=== PATIENT | male | born 1970 | race Two or more races ===

== ENCOUNTER 2018-12-22 05:51 | Inpatient (IN) | payer OTHER ==
[2018-12-22] VITALS (15 sets, daily range): BP systolic 97–128; BP diastolic 52–70
[~2018-12-22] VITALS: Ht 170.2 cm; Wt 87.1 kg
[~2018-12-22 05:51] MED LIST: ADVIL200 M2 ORAL
[2018-12-22] MEDS ORDERED: ceFAZolin sod 2 GM in D5W 110 ML IVPB ONE (07:00)
--- NOTE | 2018-12-22 07:23 | Pre-Procedure Note/Attestation ---
Pre-Procedure Note/Attestation Complete Prior to Procedure Planned Procedure: not applicable Procedure Narrative: Artificial disc replacement of C56, anterior cervical discectomy and fusion of C67 Indications for Procedure Pre-Operative Diagnosis: herniation of C56,67 Attestation I attest that I discussed the nature of the procedure; its benefits; risks and complications; and alternatives (and the risks and benefits of such alternatives ), prior to the procedure, with the patient (or the patient's legal inside technical sales representative). I attest that, if there was a reasonable possibility of needing a blood transfusion, the patient (or the patient's legal inside technical sales representative) was given the [facility] standardized written summary, pursuant to the Anshu Kirti Blood Safety Act ([place] Health and Safety Code # 1645, as amended). I attest that I re-evaluated the patient just prior to the surgery and that there has been no change in the patient's H&P, except as documented below: Elliott Tracy MD Dec 22, 2018 07:23
--- NOTE | 2018-12-22 07:25 | Brief Operative Note ---
Immediate Post Operative Note Operative Note Chief Complaint: neck pain and radiculopathy Pre-op Diagnosis: herniation of C56,67 Procedure: Artificial disc replacement of C56, anterior cervical discectomy and fusion of C67 Post-op Diagnosis: same as pre-op Findings: consistent w/pre-op dx studies Surgeon: Demarcus Repatcher: William Anesthesiologist: OLIVERIO Anesthesia: general Specimen: none Complications: none Condition: stable Fluids: IVF Estimated Blood Loss: minimal Drains: none Implant(s) used?: Yes - prodisc C sz5, interlock c sz 6 screws 3x13 Elliott Tracy MD Dec 22, 2018 07:25
[2018-12-22] MEDS ORDERED: Milk of Magnesia 30ml Ud ORAL PRN (07:30)
[2018-12-22] MEDS ORDERED: HYDROcodone/Acetamin 7.5/325 tab ORAL PRN ×2 (07:30)
[2018-12-22] MEDS ORDERED: Morphine Sulfate 2mg/ml Inj(IV/IM USE ONLY) IV PRN (07:30)
[2018-12-22] MEDS ORDERED: Morphine Sulfate 4mg/ml Inj (IV USE ONLY) IV PRN ×2 (07:30)
[2018-12-22] MEDS ORDERED: Naloxone 0.4mg/ml Inj IVP PRN (07:30)
[2018-12-22] MEDS ORDERED: HYDROmorphone 1mg/ml Carpuject IVP PRN (07:30)
[2018-12-22] MEDS ORDERED: Metoclopramide 10mg/2ml Inj IVP PRN ×2 (07:30→12:15)
[2018-12-22] MEDS ORDERED: HYDROcodone/Acetamin 5/325 tab ORAL PRN (07:30)
[2018-12-22] MEDS ORDERED: Midazolam 2mg/2ml Inj ONE (09:28)
[2018-12-22] MEDS ORDERED: fentaNYL 100 mcg/2 mL IV ONE (09:28)
[2018-12-22] MEDS ORDERED: Rocuronium Bromide 50mg/5ml Inj IV ONE (10:28)
[2018-12-22] MEDS ORDERED: Thrombin 5000 units TOPIC ONE (10:28)
[2018-12-22] MEDS ORDERED: Gelfoam Size TOPIC ONE (10:28)
[2018-12-22] MEDS ORDERED: Succinylcholine 20mg/ml 10ml vial ONE (10:28)
[2018-12-22] MEDS ORDERED: Bacitracin 50000 Units Vial ONE (10:29)
[2018-12-22] MEDS ORDERED: Neostigmine 1mg/ml 10ml Inj ONE (11:00)
[2018-12-22] MEDS ORDERED: LR 1000ml ONE (11:00)
[2018-12-22] MEDS ORDERED: Propofol 1,000mg/ 100ml btl IV ONE (11:00)
[2018-12-22] MEDS ORDERED: NS Irrig 1000ml ONE (11:00)
[2018-12-22] MEDS ORDERED: Sterile Water Irrig 1000ml IRRIG ONE (11:00)
[2018-12-22] MEDS ORDERED: Atropine Sulfate 0.4mg/ml inj ONE (11:40)
[2018-12-22] MEDS ORDERED: Morphine Sulfate 10mg/ml Inj ONE (11:55)
[2018-12-22] MEDS ORDERED: Glycopyrrolate 0.2mg/ml 1ml Vial ONE (11:57)
[2018-12-22] MEDS ORDERED: Sodium Chloride 10ml vial INJ ONE (11:57)
[2018-12-22] MEDS ORDERED: LR 1000ml 1,000 ML IVLG SCH (12:07)
--- NOTE | 2018-12-22 12:07 | Anethesia Preoperative Eval ---
Anesthesia Pre-op PMH/ROS General Date of Evaluation: Dec 22, 2018 Time of Evaluation: 10:40 Anesthesiologist: Nadine ASA Score: ASA 2 Mallampati Score Class I : Soft palate, uvula, fauces, pillars visible Class II: Soft palate, uvula, fauces visible Class III: Soft palate, base of uvula visible Class IV: Only hard plate visible Mallampati Classification: Class II Surgeon: Demarcus Diagnosis: Cervical radiculopathy Surgical Procedure: ACDF Anesthesia History: none Family History: no anesthesia problems Allergies: Coded Allergies: No Known Allergies (Unverified , 12/19/18) Patient NPO?: Yes NPO Date: Dec 21, 2018 NPO Time: 1999 Past Medical History Cardiovascular: Denies: HTN, CAD, [place], valve dz, arrhythmia, other Pulmonary: Denies: asthma, COPD, JUAN, other Gastrointestinal/Genitourinary: Reports: GERD - mild; Denies: CRI, ESRD, other Neurologic/Psychiatric: Reports: other - chronic pain; Denies: dementia, CVA, depression/anxiety, TIA Endocrine: Denies: DM, hypothyroidism, steroids, other HEENT: Denies: cataract (L), cataract (R), glaucoma, NUIQSUT (L), NUIQSUT (R), other Hematology/Immune: Denies: anemia, DVT, bleeding disorder, other Musculoskeletal/Integumentary: Denies: OA, RA, DJD, DDD, edema, other PMH Narrative: as above PSxH Narrative: cholecystectomy Anesthesia Pre-op Phys. Exam Physician Exam Last Vital Signs Date Time Temp Pulse Resp B/P (MAP) Pulse Ox O2 Delivery O2 Flow Rate FiO2 12/22/18 07:34 97.7 85 19 113/70 (84) 97 12/22/18 07:10 Room Air Constitutional: NAD Neurologic: CN 2-12 intact Cardiovascular: RRR, no M/R/G Respiratory: CTA Gastrointestinal: S/NT/ND Airway Exam Mallampati Score: Class II MO: full Neck: flexible ROM: limited Teeth: intact Dentures: no upper, no lower Anesthesia Pre-op A/P Labs see chart Studies Pre-op Studies: EKG - NSR Risk Assessment & Plan Assessment: ASA 2 Plan: GA with ETT neuromonitoring Status Change Before Surgery: No Pre-Antibiotics Drug: Ancef 2 gr Given Within 1 Hr of Incision: Yes Time Given: 11:36 Deshaun Mccoy MD Dec 22, 2018 12:07
[2018-12-22] MEDS ORDERED: Meperidine 50mg/ml Inj(FOR RIGORS ONLY) IV PRN (12:15)
[2018-12-22] MEDS ORDERED: Ketorolac 30mg Inj IV PRN (12:15)
[2018-12-22] MEDS ORDERED: DiphenhydrAMINE 50mg/ml Inj IVP PRN (12:15)
[2018-12-22] MEDS ORDERED: Acetaminophen (Non formulary) 100 ML IV ONE (12:15)
[2018-12-22] MEDS ORDERED: Ketorolac 30mg Inj ONE (13:08)
--- NOTE | 2018-12-22 13:45 | Immediate Post-Op Evaluation ---
Immediate Post-Op Evalulation Immediate Post-Op Evalulation Procedure: ACDF C5 to C7 Date of Evaluation: Dec 22, 2018 Time of Evaluation: 13:44 IV Fluids: 1200 Blood Products: none Estimated Blood Loss: 50 Urinary Output: 200 Blood Pressure Systolic: 128 Blood Pressure Diastolic: 67 Pulse Rate: 64 Respiratory Rate: 20 O2 Sat by Pulse Oximetry: 99 Temperature (Fahrenheit): 97.7 Pain Score (1-10): 1 Nausea: No Vomiting: No Complications none Patient Status: reacts, patent, extubated, none Hydration Status: adequate Deshaun Mccoy MD Dec 22, 2018 13:45
[2018-12-22] MEDS: Hydromorphone 0.5mg/0.5ml inj IVP PRN ×2 (13:59→14:15)
--- NOTE | 2018-12-22 15:20 | NUR ---
NURSE NOTES: Patient arrived on unit via hospital bed. Stable. Denies pain or SOB. Patient oriented to room, unit, and call light. Patient encouraged to use call light for assistance, verbalized understanding. Surgical site clean, dry, and intact. Ice pack in place as ordered. Patient is in bed in locked and lowest position with call light within reach. All safety measures provided. WIll continue to monitor.
[2018-12-22] MEDS ORDERED: Chloraseptic Spray 20mL Bottle ORAL PRN (16:31)
--- NOTE | 2018-12-22 17:40 | Diagnostic Imaging Report ---
Indication: Back pain Technique: Intraoperative fluoroscopic imaging. Total number of images submitted 4 Total fluoroscopy time 32.4 seconds Total fluoroscopy dose 11.67 mGy Operating surgeon: Demarcus Comparison: None Findings: Fluoroscopic imaging from spinal surgery submitted for archival the PACS. Initial image demonstrates an indwelling endotracheal tube final image demonstrates surgical material in the renal C5-C6 and C6-C7. Note that the radiologist was not present during image acquisition. IMPRESSION: Intraoperative fluoroscopic imaging. Please see operative report.
--- NOTE | 2018-12-22 18:00 | Operative Note - Dictated ---
DATE OF OPERATION: 12/22/2018 SURGEON: Elliott Tracy MD, Orthopedic Spine Surgeon. CLIENT SERVICE CONSULTANT: BRIAN Marcano. PREOPERATIVE DIAGNOSES: 1. Intractable neck pain. 2. Radiculopathy. 3. Herniation, C5-C6 and C6-C7. 4. Neural foraminal stenosis C5-C6 and C6-C7. 5. Stenosis. POSTOPERATIVE DIAGNOSES: 1. Intractable neck pain. 2. Radiculopathy. 3. Herniation, C5-C6 and C6-C7. 4. Neural foraminal stenosis C5-C6 and C6-C7. 5. Stenosis. PROCEDURE PERFORMED: 1. Anterior cervical discectomy and artificial disc replacement of C5-C6 using a Synthes Prodisc C size 5. 2. Anterior cervical discectomy and fusion of C6-C7 using Nuvasive Interlock C size 6 PEEK cage and three 13 mm screws 1 mL Osteocell allograft bone and local autograft. 3. Use of intraoperative microscope. 4. Motor evoked potential monitoring. 5. Somatosensory evoked potential monitoring. 6. Supervision and interpretation of fluoroscopy. COMPLICATIONS: None. ANESTHESIA: General. ANESTHESIOLOGIST: Deshaun Mccoy M.D. ESTIMATED BLOOD LOSS: Less than 100 mL. INDICATIONS FOR SURGERY: This patient is a 48-year-old male who has a history of diagnoses as listed above. As of result of this, the patient sustained intractable neck pain, radiculopathy, herniation, C5-C6 and C6-C7, neural foraminal stenosis C5-C6 and C6-C7, stenosis. We tried a course of conservative management but despite this course there was still a significant component of persistent, recalcitrant neck pain and arm pain. The MRI demonstrated significant neural foraminal compromise secondary to disc herniations at C5-C6 and C6-C7. We had a long discussion with Joni regarding the risks and benefits of surgery. Our discussion included but was not limited to nonoperative management, chiropractic management, another epidural steroid injection as well definitive management in the form of surgery. We recommended an artificial disc replacement of cervical C5-C6 and anterior cervical discectomy and fusion of cervical C6-C7 as final definitive management. We reviewed the risks and benefits of surgery with the patient. Our discussion included a comprehensive review of the clinical issues and the nature of the clinical decision. We reviewed the alternatives, including doing nothing. The patient elected to proceed accordingly with an artificial disc replacement of cervical C5-C6 and anterior cervical discectomy and fusion of cervical C6-C7. We had a long discussion regarding the risks, alternatives and benefits of surgery. Our description of the risks included a discussion in person as well as a signed consent which detailed all pertinent risks from the procedure itself. Briefly, our discussion included but was not limited to infection, bleeding, pseudarthrosis, spinal cord injury, neurovascular injury, dural tear, CSF leak, neuropathy, paralysis, permanent weakness/drop foot/drop arm, paresthesias, blindness, palsy and weakness. The patient understood there may be a need for a revision surgery or additional procedures. Approach-related complications including dysphonia, dysphagia, blindness, permanent vocal cord and neural injury, hematoma, swallowing and breathing difficulty. Medical complications were reviewed including liver, kidney, shock, cardiopulmonary failure, anesthesia complications including , swelling, damage to the musculature, larynx/voice injury or loss, esophagus/throat, trachea, blood vessels and muscles/muscular sprain and lungs/pneumothorax during this surgical procedure; injury to deeper structures may be temporary or permanent. After this review of risks, the patient understood these and elected to proceed. A written and verbal consent was given. We discussed the pros and cons of all the alternatives. We discussed the uncertainties associated with the decision. Afterwards I assessed the patient's understanding and explored their preferences. All questions were answered and no guarantees were given. Medical clearance was obtained prior to surgery. INTRAOPERATIVE FINDINGS: At C5-C6: There was collapse of the disc space, decreased disc height. There was a broad anterior osteocyte of bone. There was evidence of a discrete tear within the posterior longitudinal ligament on the left side. This tear was oriented 20 degrees cephalad to caudad. Through this tear, I noticed the posterior limb of the disc fragment. This was carefully probed and resected with a combination of curettes and Kerrison rongeurs. At C6-C7: There was a tear in the posterior longitudinal ligament on the left side approximately 20 degrees cephalad to caudad. Through this tear, I noted the posterior limb of herniated disc. This was probed with a Microsect curette and resected with a combination of Kerrison rongeurs and pituitary. There was a large fragment. After removal of the fragment, there was a fat pad noticed in and around the neural foramina itself. A complete and thorough decompression was performed without difficulty. DESCRIPTION OF PROCEDURE: Under the benefit of general endotracheal anesthesia and with the assistance of the entire operative team, the patient was moved from the gurney onto the operative table in the supine position. The head was secured and carefully positioned appropriately. Bilateral arms were secured with GelPads and foam and all bony prominences were padded. For the bilateral lower extremities SCD and ISABELLA hose were placed for DVT prophylaxis. A surgical timeout was called which corroborated our planned procedure of artificial disc replacement of an artificial disc replacement of cervical C5-C6 and anterior cervical discectomy and fusion of cervical C6-C7. Preoperative antibiotics were administered within 30 minutes of the incision for antibiotic prophylaxis. Using lateral fluoroscopic radiography, the operative levels were delineated. Next the wound was prepped and draped with Chlorhexidine and sterile drapes. An incision was based on lateral fluoroscopy and we centered our incision at the C5-C6 and C6-C7 Interspace and next using a standard Murray-Quan anterior based approach the incision was taken down through the skin and subcutaneous tissues until the vertebral bodies and their corresponding disc spaces were visualized. A needle was placed into the interspace to confirm placement of the operative interspace and we performed the remainder of procedure under microscopic visualization. Next, using a bipolar and Bovie cautery to ensure meticulous hemostasis, the longus colli was mobilized bilaterally and retractors were placed deep to the longus colli bilaterally to address retraction. Next we turned our attention to the radical anterior discectomy. This was initially performed at C5-C6. First by using a 15 blade scalpel followed by narrow pituitaries and a Microsect 5-B curette was used to denude the endplate of all cartilaginous tissue. Next using a [employer] Reji AM8 drillbit the vertebral endplates were denuded of all residual cartillage in a [id number] and layer by layer fashion, and ultimately the posterior uncinate joints bilaterally and posterior osteophytic lips and margins were carefully denuded until clear visualization of the posterior longitudinal ligament was possible. An endplate preparation was performed in the exact same fashion using an intervertebral order administrator, sequential distraction was obtained throughout the disc space. We saw a tear/rent in the PLL and this was carefully mobilized and dissected using a Microsect 1-B curet until we visualized a discrete disc herniation with compression of the spinal cord as well as neural foramina which was left more than right sided. This neural foraminal compression was carefully resected using a Kerrison-1 and Kerrison-2 rongeurs until complete decompression of the spinal cord was visualized and complete decompression of the neural foramina and nerve root therein as well as the axilla and lateral margin of the nerve root was visualized and subsequently completely decompressed. The family was notified at one hour intervals throughout the procedure to provide for consistent updates. We next turned our attention towards trialing our implant within the disc space. We initially tried size 5 and this Prodisc Cervical spacer fit well in regards to depth and width. This implant was opened and prepared. Next under direct visualization I confirmed excellent fit in respect to the anterior and posterior vertebral bodies, the uncinate joints and in regards to toggle. Once satisfied with this placement on serial AP and lateral fluoroscopy I turned my attention towards cutting our len. These were cut in the bones using a reciprocating drill and afterwards all free fragments of bone were irrigated. Next FloSeal was placed into the interspace, then removed in its entirety and the implant was inserted using fluoroscopic guidance. Next the Synthes Prodisc C size 5 ADR was then carefully advanced and secured into the intervertebral space under direct visualization and with supervision of AP and lateral fluoroscopic views. I next turned my attention towards the radical anterior discectomy. This was then performed at C6-C7. First by using a 15 blade scalpel followed by narrow pituitaries and a micro-sect 5-B curette was used to denude the endplate of all cartilaginous tissue. Next using a [employer] Reji AM8 drillbit the vertebral endplates were denuded of all cartilaginous tissue in a [id number] and layer by layer fashion, and ultimately the posterior uncinate joints bilaterally and posterior osteophytic lips and margins were carefully denuded until wide and thorough visualization of the posterior longitudinal ligament was possible. At this level the endplate preparation was performed in the exact same fashion using an intervertebral order administrator, sequential distraction was obtained throughout the disc space. We saw a tear/rent in the PLL and this was carefully mobilized and dissected using a micro-set 1-B curette until we visualized an obvious disc herniation with compression of the spinal cord as well as neural foramina which was left more than right sided. This neural foraminal compression was carefully resected using a Kerrison-1 and Kerrison-2 rongeurs until complete decompression of the spinal cord was visualized and complete decompression of the neural foramina and nerve root therein as well as the axilla and lateral margin of the nerve root was visualized and subsequently completely decompressed. We next turned our attention towards trialing our implant within the disc space. We initially tried size 5 and afterwards size 6 trial from the Nuvasive interlock system at each level, which appeared to be appropriate under AP and lateral fluoroscopy as well as in terms of its height, depth, width and lack of toggle. The PEEK polyetheretherketone interbody cages were then both packed with allograft bone from [employer] and local autograft bone matrix. Next these were then carefully advanced and secured into their intervertebral spaces under direct visualization and with supervision of AP and lateral fluoroscopic views. We next turned our attention towards plating. Plating was performed at each level with the Nuvasive interlock-C plating system. A total of three screws, size 13 mm in length were inserted and confirmed under AP and lateral fluoroscopy and confirmed to be in excellent position. After a finger sweep we confirmed removal of all sponges. The retractor was removed and we next turned our attention to meticulous hemostasis with FloSeal and bipolar cautery. After the sponge and needle count was again found to be correct with our second count, we next turned our attention to closure. The wound was again copiously irrigated with antibiotic impregnated saline Closure consisted of 4-0 clear nylon for the platysma, and 5-0 clear nylon for the superficial skin. Final skin closure and dressings consisted of Dermabond. Prior to final closure, a final radiograph was obtained which demonstrated the hardware is intact with excellent position throughout. The patient tolerated the procedure well. The patient was carefully extubated after the conclusion of surgery. We discussed the findings of the surgery with the family upon completion of the case. At this point the patient was transferred to the spine floor for further observation. Elliott Tracy M.D. DR: MILADIS JOB#: [id number] CC:
[2018-12-22] MEDS: Docusate 100mg cap ORAL SCH (18:07)
[2018-12-22] MEDS: Dexamethasone 4mg/ml vial IVP SCH (18:07)
[2018-12-22] MEDS: NS w/KCl 20mEq 1000ml 1,000 ML IV SCH (18:07)
[2018-12-22] MEDS: ceFAZolin sod 1 GM in D5W 55 ML IV SCH (18:43)
--- NOTE | 2018-12-22 19:30 | NUR ---
HAND-OFF: Report given to Kim MAR. Patient is stable.
--- NOTE | 2018-12-22 22:41 | NUR ---
NURSES NOTE: Received pt lying in bed, A/O X4, family at bed side. Patient shows no outward s/s of distress. Breathing pattern is unlabored, and even. VS WNL; however, heart rate reads low at 43-50. Patient denies dizziness, light headedness, and shows no alterations in mental status. Patient drank apprx 2000ml of water and HR increased. Patient voided using urinal, 200 cc recorded at 2045. Radial pulse is regular and at 60. VS machine records HR at 56-58. Patient requested to walk with , ambulatory without assist, steady gait. Surgical site is clean and intact. Ice packs given for anterior and posterior neck for comfort. Patient states pain is 3/10 and declines tylenol. Patient will continue to be closely monitored.
[2018-12-23] VITALS: BP 117/68
[2018-12-23] MEDS: Dexamethasone 4mg/ml vial IVP SCH ×3 (00:14→11:18)
[2018-12-23] MEDS: ceFAZolin sod 1 GM in D5W 55 ML IV SCH ×2 (03:29→11:01)
[2018-12-23 04:00] VITALS: BP 128/66
[2018-12-23] MEDS: NS w/KCl 20mEq 1000ml 1,000 ML IV SCH ×2 (06:31→13:00)
[2018-12-23 08:00] VITALS: BP 109/69
--- NOTE | 2018-12-23 08:00 | NUR ---
NURSE NOTES: Received report from Abby MAR, pt a/a/o x 4 laying inbed with no signs of distress or other issues at this time. surgical dressing c/d/i open to air. IV on the left FA gauge #10 running NS+20mEq@100ml/hr. soft cervical diet, pt is able to tolerated well with no signs of n/v. per report pts HR went to lower 40's. Dr. Pereyra was consulted, awaiting for response. plan to d/c home today. call light within in reach, bed in lowest position. side rales up x2. I will f/u as needed.
--- NOTE | 2018-12-23 08:14 | NUR ---
Nurses Note: Report given to Troy Dupont. Endorsed EKG order and consult for pt low HR. Pt is stable and asymptomatic of low HR as of current and during NOC shift. Left in stable condition.
[2018-12-23 09:16] VITALS: BP 126/68
--- NOTE | 2018-12-23 09:16 | 48 Hour Post Anesthesia Eval ---
Post Anesthesia Evaluation Procedure: ACDF C5 to C7 Date of Evaluation: Dec 23, 2018 Time of Evaluation: 09:15 Blood Pressure Systolic: 126 0: 68 Pulse Rate: 64 Respiratory Rate: 18 Temperature (Fahrenheit): 97.6 O2 Sat by Pulse Oximetry: 98 Airway: patent Nausea: No Vomiting: No Pain Intensity: 3 Hydration Status: adequate Cardiopulmonary Status: stable Mental Status/LOC: patient returned to baseline Follow-up Care/Observations: n/a Post-Anesthesia Complications: none Follow-up care needed: ready to discharge Deshaun Mccoy MD Dec 23, 2018 09:16
[2018-12-23] MEDS: Docusate 100mg cap ORAL SCH (09:39)
--- NOTE | 2018-12-23 10:31 | NUR ---
PT Note PT trini completed. Patient was instructed on proper neck care and HEP's. He was able to demonstrate understanding of all instructions. No f/u PT treatments needed. Addendum: 12/23/18 at 1032 by DEBORAH BELLO PT Amended: Links added.
[2018-12-23] MEDS ORDERED: NORCO 10-325 T1 EACH ORAL (10:52)
--- NOTE | 2018-12-23 11:01 | General Progress Note ---
Assessment/Plan Assessment/Plan: neck pain and radiculopathy herniation of C56,67 Artificial disc replacement of C56, anterior cervical discectomy and fusion of C67 PLAN 1. incentive spirometry 2. SCD 3. PT evaluation and therapy 4. Hydration 5. Pain management 6. discharge planning Subjective Allergies: Coded Allergies: No Known Allergies (Unverified , 12/19/18) Subjective bradycardic noted preop asymptomatic Objective Last 24 Hour Vital Signs Date Time Temp Pulse Resp B/P (MAP) Pulse Ox O2 Delivery O2 Flow Rate FiO2 12/23/18 09:16 64 18 98 12/23/18 09:00 Room Air 12/23/18 08:00 99.0 59 18 109/69 (82) 96 12/23/18 04:00 97.6 52 17 128/66 (86) 96 12/23/18 00:00 98.7 53 16 117/68 (84) 98 12/22/18 21:00 Room Air 12/22/18 20:00 98.6 48 18 111/57 (75) 98 12/22/18 17:45 97.5 53 19 120/60 (80) 99 12/22/18 16:45 98.1 80 18 100/62 (75) 100 12/22/18 15:45 98.1 67 19 104/60 (75) 98 12/22/18 15:15 98.1 69 19 97/54 (68) 98 12/22/18 15:00 98.1 74 19 99/52 (68) 93 12/22/18 14:50 97.9 56 12 123/69 99 Nasal Cannula 3 12/22/18 14:45 97.9 12/22/18 14:45 97.9 12/22/18 14:45 97.9 12/22/18 14:40 52 12 125/68 99 Nasal Cannula 3 12/22/18 14:25 50 12 112/59 100 Nasal Cannula 3 12/22/18 14:10 52 12 118/68 100 Nasal Cannula 3 12/22/18 14:00 50 13 115/65 100 Simple Mask 6 12/22/18 13:50 53 12 112/63 100 Simple Mask 6 12/22/18 13:45 53 14 118/69 100 Simple Mask 6 12/22/18 13:45 64 20 99 12/22/18 13:40 97.4 62 13 128/67 100 Simple Mask 6 Intake and Output 12/22/18 12/23/18 19:00 07:00 Intake Total 1350 ml 955 ml Output Total 250 ml Balance 1100 ml 955 ml Intake IV Total 1350 ml 955 ml Output Urine Total 200 ml Estimated Blood Loss 50 ml # Voids 1 Height (Feet): 5 Height (Inches): 7.00 Weight (Pounds): 192 Objective WDWN NAD clear breath sounds bilaterally without rhonchi or wheeze [id number] without MRG NABS nontender no HSM no CCE nonfocal Milton Mayers MD Dec 23, 2018 11:01
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
--- NOTE | 2018-12-23 13:30 | NUR ---
NURSE NOTES: Received d/c order. discharge instructions and belongings given to patient and pt's . IV removed prior to d/c. also RX for [place] #90 weer given to patient, he stated that he will go to his regular pharmacy to fill out prescription. pt left the floor with no signs of distress or other issues at this time. pt's will provide transportation. I will f/u as needed. - Dr. Castro assessed patient and cleared patient to d/c home.
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
== END 2018-12-23 12:10 | disposition home or self-care (01) | DRG 473 ==
LOC: SDSOVERFLO 05:51 → 3E 14:40
PROC: 0RB30ZZ Excision of Cervical Vertebral Disc, Open Approach (ICD-10-PCS; principal; 2018-12-22 10:30)
PROC: 0RG10A0 Fusion of Cervical Vertebral Joint with Interbody Fusion Device, Anterior Approach, Anterior Column, Open Approach (ICD-10-PCS; principal; 2018-12-22 10:30)
PROC: 0RR30JZ Replacement of Cervical Vertebral Disc with Synthetic Substitute, Open Approach (ICD-10-PCS; principal; 2018-12-22 10:30)
DX: M50.122 Cervical disc disorder at C5-C6 level with radiculopathy (principal); M48.02 Spinal stenosis, cervical region; V89.2XXS Person injured in unspecified motor-vehicle accident, traffic, sequela; R00.1 Bradycardia, unspecified
CPT/HCPCS: 36415; 72040; 76000; 84439; 84443; 86850; 86900; 86901; 87081; 94003; 94150; J2250; J2405; J2710

== ENCOUNTER 2019-06-08 11:00 | Inpatient (IN) | payer OTHER ==
[~2019-06-08] VITALS: Ht 170.2 cm; Wt 86.2 kg
[~2019-06-08 11:00] MED LIST changes: +NORCO 10-325 T1 EACH ORAL
[2019-08-03] VITALS (15 sets, daily range): BP systolic 113–123; BP diastolic 67–78
[2019-08-03] MEDS ORDERED: ceFAZolin sod 2 GM in NS 55 ML IVPB ONE (07:00)
[2019-08-03] MEDS ORDERED: LR 1000ml 1,000 ML IVLG SCH (10:39)
--- NOTE | 2019-08-03 10:43 | Anethesia Preoperative Eval ---
Anesthesia Pre-op PMH/ROS General Date of Evaluation: August 03, 2019 Time of Evaluation: 11:54 Anesthesiologist: Carmelina ASA Score: ASA 2 Mallampati Score Class I : Soft palate, uvula, fauces, pillars visible Class II: Soft palate, uvula, fauces visible Class III: Soft palate, base of uvula visible Class IV: Only hard plate visible Mallampati Classification: Class II Surgeon: Demarcus Diagnosis: Back Pain Surgical Procedure: L5-S1 Microdiscectomy, Foraminotomy, Hemilaminotomy Anesthesia History: none Family History: no anesthesia problems Allergies: Coded Allergies: No Known Allergies (Unverified , 12/19/18) Medications: see eMAR Patient NPO?: Yes Past Medical History Other: obesity - BMI 31 PSxH Narrative: Cholecystectomy Anesthesia Pre-op Phys. Exam Physician Exam Last Vital Signs Date Time Temp Pulse Resp B/P (MAP) Pulse Ox O2 Delivery O2 Flow Rate FiO2 08/03/19 10:01 Room Air 08/03/19 09:50 97.2 45 20 113/74 (87) 98 Constitutional: NAD Neurologic: CN 2-12 intact Cardiovascular: RRR Respiratory: CTA Gastrointestinal: S/NT/ND Airway Exam Mallampati Score: Class II MO: full ROM: full Teeth: missing, intact Anesthesia Pre-op A/P Risk Assessment & Plan Assessment: ASA 2 Plan: GA, SED, GlideScope Status Change Before Surgery: No Pre-Antibiotics Dru Grams Ancef IV Given Within 1 Hr of Incision: Yes Time Given: 12:06 Sonny Cosme MD August 03, 2019 10:43
--- NOTE | 2019-08-03 10:44 | Immediate Post-Op Evaluation ---
Immediate Post-Op Evalulation Immediate Post-Op Evalulation Procedure: L5-S1 Microdiscectomy, Foraminotomy, Hemilaminotomy Date of Evaluation: August 03, 2019 Time of Evaluation: 14:33 IV Fluids: 1000 LR Blood Products: 0 Estimated Blood Loss: 30 Urinary Output: 150 Blood Pressure Systolic: 126 Blood Pressure Diastolic: 71 Pulse Rate: 52 Respiratory Rate: 16 O2 Sat by Pulse Oximetry: 100 Temperature (Fahrenheit): 97.5 Pain Score (1-10): 2 Nausea: No Vomiting: No Complications 0 Patient Status: awake, reacts, patent, extubated, none Hydration Status: adequate Dru Grams Ancef IV Given Within 1 Hr of Incision: Yes Time Given: 12:06 Sonny Cosme MD August 03, 2019 10:44
[2019-08-03] MEDS ORDERED: oxyCODONE HCL/Acetaminophen 5/325mg ORAL PRN (10:45)
[2019-08-03] MEDS ORDERED: fentaNYL 100 mcg/2 mL IV PRN (10:45)
[2019-08-03] MEDS ORDERED: Ketorolac 30mg Inj IV PRN ×2 (10:45)
[2019-08-03] MEDS ORDERED: Acetaminophen (Non formulary) 100 ML IV ONE (10:45)
[2019-08-03] MEDS ORDERED: HYDROcodone/Acetamin 5/325 tab ORAL PRN ×2 (10:45→12:00)
[2019-08-03] MEDS ORDERED: Midazolam 2mg/2ml Inj IVP PRN (10:45)
[2019-08-03] MEDS ORDERED: Metoclopramide 10mg/2ml Inj IVP PRN ×2 (10:45→12:00)
[2019-08-03] MEDS ORDERED: Meperidine 25mg/0.5ml Inj (FOR RIGORS ONLY) IV PRN (10:45)
[2019-08-03] MEDS ORDERED: Labetalol 5mg/ml 20ml vial IV PRN (10:45)
[2019-08-03] MEDS ORDERED: LORazepam Inj 2mg/ml 1ml IV PRN (10:45)
[2019-08-03] MEDS ORDERED: Atropine Sulfate 0.4mg/ml inj IVP PRN (10:45)
[2019-08-03] MEDS ORDERED: DiphenhydrAMINE 50mg/ml Inj IVP PRN (10:45)
[2019-08-03] MEDS ORDERED: HYDROcodone/Acetamin 7.5/325 tab ORAL PRN ×3 (10:45→12:00)
[2019-08-03] MEDS ORDERED: fentaNYL 100 mcg/2 mL IV ONE ×2 (10:46→10:48)
[2019-08-03] MEDS ORDERED: Lidocaine 1% MPF 10mg/ml 5ml ONE (10:47)
[2019-08-03] MEDS ORDERED: Sodium Chloride 10ml vial INJ ONE (10:47)
[2019-08-03] MEDS ORDERED: Lidocaine 1% Plain 30 ml INJ ONE (10:51)
--- NOTE | 2019-08-03 11:46 | Pre-Procedure Note/Attestation ---
Pre-Procedure Note/Attestation Complete Prior to Procedure Planned Procedure: left Procedure Narrative: Left sided L45 and L5S1 hemilaminotomy foraminotomy microdiscectomy Indications for Procedure Pre-Operative Diagnosis: L45 and L5S1 herniation and resultant stenosis Attestation I attest that I discussed the nature of the procedure; its benefits; risks and complications; and alternatives (and the risks and benefits of such alternatives ), prior to the procedure, with the patient (or the patient's legal arborist representative). I attest that, if there was a reasonable possibility of needing a blood transfusion, the patient (or the patient's legal arborist representative) was given the [place] [employer] standardized written summary, pursuant to the [place] Blood Safety Act ([place] Health and Safety Code # 1645, as amended). I attest that I re-evaluated the patient just prior to the surgery and that there has been no change in the patient's H&P, except as documented below: Elliott Tracy MD August 03, 2019 11:46
--- NOTE | 2019-08-03 11:47 | Brief Operative Note ---
Immediate Post Operative Note Operative Note Chief Complaint: back pain and radiculopathy Pre-op Diagnosis: L45 and L5S1 herniation and resultant stenosis Procedure: Left sided L45 and L5S1 hemilaminotomy foraminotomy microdiscectomy Post-op Diagnosis: same as pre-op Findings: consistent w/pre-op dx studies Surgeon: Demarcus Asbestos Removal Worker: William Anesthesiologist: Carmelina Anesthesia: general Specimen: none Complications: none Condition: stable Fluids: IVF Estimated Blood Loss: minimal Drains: none Implant(s) used?: No Elliott Tracy MD August 03, 2019 11:47
[2019-08-03] MEDS ORDERED: Vancomycin 1gm vial IVPB ONE (11:56)
[2019-08-03] MEDS ORDERED: Ropivacaine 5mg/ml Vial 20ml INJ ONE (11:56)
[2019-08-03] MEDS ORDERED: Thrombin 5000 units TOPIC ONE (11:56)
[2019-08-03] MEDS ORDERED: Bacitracin 50000 Units Vial ONE (11:56)
[2019-08-03] MEDS ORDERED: Gelfoam Size TOPIC ONE (11:56)
[2019-08-03] MEDS ORDERED: Neostigmine 1mg/ml 10ml Inj ONE (12:00)
[2019-08-03] MEDS ORDERED: Chloraseptic Spray 20mL Bottle ORAL PRN (12:00)
[2019-08-03] MEDS ORDERED: HYDROmorphone 1mg/ml Carpuject IVP PRN (12:00)
[2019-08-03] MEDS ORDERED: NS Irrig 1000ml ONE (12:00)
[2019-08-03] MEDS ORDERED: Sterile Water Irrig 1000ml IRRIG ONE (12:00)
[2019-08-03] MEDS ORDERED: propofoL 1,000mg/100ml IV ONE (12:00)
[2019-08-03] MEDS ORDERED: Milk of Magnesia 30ml Ud ORAL PRN (12:00)
[2019-08-03] MEDS ORDERED: Morphine Sulfate 4mg/ml Inj (IV USE ONLY) IV PRN ×2 (12:00)
[2019-08-03] MEDS ORDERED: Naloxone 0.4mg/ml Inj IVP PRN (12:00)
[2019-08-03] MEDS ORDERED: Morphine Sulfate 2mg/ml Inj(IV/IM USE ONLY) IV PRN (12:00)
[2019-08-03] MEDS ORDERED: LR 1000ml ONE (12:00)
[2019-08-03] MEDS ORDERED: Glycopyrrolate 0.2mg/ml 1ml Vial ONE (13:24)
[2019-08-03] MEDS: Hydromorphone 0.5mg/0.5ml inj IVP PRN ×2 (14:53→15:18)
--- NOTE | 2019-08-03 15:40 | NUR ---
NURSE NOTES: Patient received from PACU via bed to room 315-2 in stable condition, on O2 3LNC. Polish speaking. Vitals stable, HR in 40-50's (patient's baseline), asymptomatic, no c/o chest pain, SOB. Denies pain at this time, ice pack to lower back. Oriented patient to room and call light. Lower back surgical site, dermabond. Bilateral SCDs on. Neuro checks done, CMS+, wiggles, pulses palpable, skin warm, no NT, hand grasps/pedal pushes strong/equal 5/5. IVF infusing to RW at 100 ml/hr. Urinal provided. Called RT for IS, encouraged patient on CDB and ankle rotation, demonstrated correctly. Tolerating clear liquids, no NV, will advance to regular diet. Call light in reach, bed in lowest position, will continue to monitor.
[2019-08-03] MEDS: NS w/KCl 20mEq 1000ml 1,000 ML IV SCH (17:53)
[2019-08-03] MEDS: Docusate 100mg cap ORAL SCH (17:53)
--- NOTE | 2019-08-03 19:04 | Diagnostic Imaging Report ---
INDICATION: Pain, intraoperative TECHNIQUE: Intraoperative imaging Fluoroscopy time: 5.5 seconds Total dose: [id number] mGym2 Total number of images: 2 COMPARISON: None FINDINGS: Intraoperative images demonstrate surgical tools posterior to the L4-5 and L5-S1 discs. Subsequent image demonstrates a surgical tool projected over L5-S1 disc. IMPRESSION: Intraoperative imaging, as described
--- NOTE | 2019-08-03 19:30 | NUR ---
NURSE NOTES: Received report from Philomena MAR. Rounding is done with Philomena RN. Patient is a/ox4. Denied any pain or distress with RA at this time. Dermabond on lower backed checked and intact. Provided ice pack. IV site is intact and IV fluid is running. Patient used urinal. Bed is on alarm, locked, and lowest position. Call light within reach. Will continue to monitor.
--- NOTE | 2019-08-03 19:55 | NUR ---
HAND-OFF: Report given to Elaine MAR, rounds made, patient stable. Reports he ambulated in halls at 1830, tolerated well.
[2019-08-03] MEDS: ceFAZolin sod 1 GM in D5W 55 ML IV SCH (22:10)
--- NOTE | 2019-08-04 02:20 | NUR ---
HAND-OFF: Report given to Demetra MAR. Patient in stable condition.
--- NOTE | 2019-08-04 02:23 | NUR ---
NURSE NOTES: Received report from ZAID Henry. Rounds done, patient sleeping on and off. No complaints of pain at this time. Bed in low position, locked, side rails up x2, call light within reach. Encouraged to call as needed.
[2019-08-04] MEDS: ceFAZolin sod 1 GM in D5W 55 ML IV SCH (03:48)
[2019-08-04] MEDS: NS w/KCl 20mEq 1000ml 1,000 ML IV SCH (03:49)
[2019-08-04 04:00] VITALS: BP 112/66
--- NOTE | 2019-08-04 04:06 | NUR ---
NURSE NOTES: Patient sleeping, easily awakened. IV intact, no distress noted. Tiny PO well. Last BM 08/03/19.
--- NOTE | 2019-08-04 07:20 | NUR ---
NURSE NOTES: Handoff received from Demetra and Julio C RNs. Patient is awake and alert, no signs of distress noted. Patient reports 0/10 pain, no nausea. IV is patent and asymptomatic running IVF as ordered. Patient was updated about plan of care today, states that he is eager to go home. Bed is low and locked, side rails up x2, call light is within reach.
[2019-08-04 08:00] VITALS: BP 114/68
[2019-08-04] MEDS: Docusate 100mg cap ORAL SCH (08:19)
--- NOTE | 2019-08-04 10:43 | NUR ---
PT Note PT eval completed, treatment initiated. Patient was instructed on HEP's proper log rolling techniques and proper body mechanics. Patient was able to demonstrate understanding by verbalizing and give return demonstration of said techniques. Patient is safe for DC home.
--- NOTE | 2019-08-04 11:05 | NUR ---
NURSE NOTES: Patient was safely discharged from to home in stable condition via private vehicle. Patient belongings were verified and sheet was signed by patient. Patient information packet was provided and patient verbalized understanding of instructions, any questions were answered. Patient verbalized understanding of follow-up appointment with MD, IV and wristband were removed.
--- NOTE | 2019-08-04 11:15 | Operative Note - Dictated ---
DATE OF OPERATION: 08/03/2019 SURGEON: Elliott Tracy MD MENTAL HEALTH PROGRAM DIRECTOR: BRIAN Fam. ANESTHESIA: General endotracheal anesthesia. PREOPERATIVE DIAGNOSES: 1. Intractable back pain. 2. Intractable leg pain. 3. Worsening radiculopathy. 4. Weakness. 5. Herniated nucleus pulposus, L4-L5 and L5-S1 herniation. 6. Neural foraminal stenosis, L4-L5 and L5-S1. POSTOPERATIVE DIAGNOSES: 1. Intractable back pain. 2. Intractable leg pain. 3. Worsening radiculopathy. 4. Weakness. 5. Herniated nucleus pulposus, L4-L5 and L5-S1 herniation. 6. Neural foraminal stenosis, L4-L5 and L5-S1. PROCEDURES PERFORMED: 1. Left-sided L4-L5 and L5-S1 microdiscectomy. 2. L4-L5 and L5-S1 hemilaminotomy, foraminotomy and medial facetectomy. 3. L4-L5 and L5-S1 neural foraminotomy through a transpedicular intraforaminal approach. 4. Use of intraoperative microscope. 5. Supervision and interpretation of intraoperative fluoroscopy. 6. Supervision and interpretation of somatosensory-evoked potential and free running EMG monitoring. EBL: Less than 100 mL. COMPLICATIONS: None. INDICATIONS FOR THE PROCEDURE: The patient presents for intractable back pain and radiculopathy. The patient tried and failed a prolonged course of conservative management, including but not limited to chiropractic therapy, physical therapy, nonsteroidal anti-inflammatory drugs, medication, ice packs as well as epidural injection. Despite these therapies, the patient still developed recalcitrant pain and elected for definitive management in the form of left-sided L4-L5 and L5-S1 microdiscectomy, L4-L5 and L5-S1 hemilaminotomy, foraminotomy and medial facetectomy, L4-L5 and L5-S1 neural foraminotomy through a transpedicular intraforaminal approach CONSENT: We had a long discussion with the patient regarding definitive surgical treatment options. The patient's MRI demonstrated herniated nucleus pulposus, L4-L5 and L5-S1 herniation, neural foraminal stenosis, L4-L5 and L5-S1 and as a result, I felt the patient would benefit from the discectomy as well as neural foraminotomy at this level. We had a long discussion with the patient regarding the risks, alternatives, and benefits of surgery. Our description of the risks included a discussion in person as well as a signed consent which detailed all pertinent risks and the procedure itself. Briefly, our discussion included but was not limited to infection, bleeding, pseudarthrosis, spinal cord injury, neurovascular injury, dural tear, CSF leak, neuropathy, paralysis, permanent weakness/drop foot, paresthesias blindness, palsy and weakness. The patient understood there may be a need for revision surgery or additional procedures. Approach related complications including dysphonia, dysphagia, blindness, permanent vocal cord and neural injury, hematoma, swallowing and breathing difficulty. Medical complications including liver, kidney, shock, and cardiopulmonary failure. Anesthesia complications including , swelling. Damage to the musculature, larynx (voice injury or loss),esophagus (throat), trachea, blood vessels and muscles (muscular sprain) and lungs (pneumothorax) during this surgical procedure. Injury to deeper structures may be temporary or permanent. The patient understood these and elected to proceed. A written and verbal consent was given. We discussed the pros and cons of all the alternatives. We discussed the uncertainties associated with the decision. Afterwards I assessed the patients understanding and explored their preferences. All questions were answered and no guarantees were given. Medical clearance was obtained prior to surgery OPERATIVE FINDINGS: At L4-L5, there was a significant component of neural foraminal stenosis. This attributed to the discovery of a large disk herniation within the neural foramina. This disk was protruding through a discrete tear in the posterior longitudinal ligament. The tear itself was approximately 20 degrees cephalad to caudad. The tear was encapsulating the actual herniated nucleus pulposus and as such it was freed using a micro-set 1-B and 2-B curets and tear of the herniation was resected using a combination of arthroscopic and 1.5 and 2 mm pituitaries. The disk itself I should note was soft and spongy. It was not granular or desiccated, which contributed to degenerative processes. There was a soft and spongy disk herniation which was noticed combined with a tear on the posterior longitudinal ligament, which led me to believe this was more traumatic in nature. At L5-S1, I again noted neural foraminal stenosis, which I attributed to a discovery of a disk herniation impingement on the neural foramina at L5-S1. This disk herniation was seen circumferential to a tear in the posterior longitudinal ligament. The tear itself was 20 degrees cephalad to caudad and the tear was freed using a micro-set 1-B and 2-B until complete loosening of the disk fragment was allowed. The disk itself was soft and spongy. This combined with a tear noted in the PLL led me to feel this was more traumatic in nature. The fragmented disk was resected without difficulty using a combination of pituitary 1.5 and 2 mm as well as arthroscopic pituitaries. DESCRIPTION OF PROCEDURE: Under the benefit of general endotracheal anesthesia and with the assistance of the entire operative team, the patient was moved from the [facility] onto the operative table in the prone position on a Qasim frame. The head was secured and positioned appropriately. Bilateral arms were secured with Gel pads and foam and all bony prominences were padded. The bilateral lower extremity SCD and ISABELLA hose were placed for DVT prophylaxis. A surgical timeout was called which corroborated our planned procedure. Preoperative Antibiotics were administered within 30 minutes of the incision for prophylaxis. Decadron was given for preoperative steroids. Using lateral radiography, the operative levels were delineated. An incision was marked based on our interpretation of lateral radiography and afterwards the body was prepped and draped in the usual sterile manner. The family was notified that we were ready to commence surgery and were called in the waiting room hourly for updates An incision was based on our lateral fluoroscopic image to center the incision at the L4-S1 interspace. The wound was prepped and draped in the usual sterile fashion. Using a scalpel a midline incision was taken down through the skin and subcutaneous tissues until the overlying hemilamina of L4-L5 and L5-S1 were visualized. Next, using meticulous hemostasis, hemilamotomies were dissected and retractors were placed. Using a Vashti dental, we confirmed placement at the L4-L5 and L5-S1 interspace. We next turned our attention to our decompression. A standard hemilaminotomy foraminotomy medial facetectomy was performed at each level in standard fashion using a Midas-Reji type AM8 drill bit, straight and angled curettage, and Kerrison 4 rongeurs until the lateral thecal sac margin and traversing nerve root was visualized. All remainders of the ligamentum flavum and lateral bony margins were resected in total with angled curettage and Kerrison 4 rongeurs until the lateral thecal sac margin and traversing nerve root was visualized and decompressed. We next turned our attention toward our L4-L5 microdiscectomy on the left side. At each level a Langley 4 was used to gently mobilize the thecal sac medially and this was held retracted with a bayonetted nerve root retractor. It was at this point that we noted a large broad-based disc protrusion with encroachment dorsally on the thecal sac neural foraminal contents. At L4-L5, there was a significant component of neural foraminal stenosis. This attributed to the discovery of a large disk herniation within the neural foramina. This disk was protruding through a discrete tear in the posterior longitudinal ligament. The tear itself was approximately 20 degrees cephalad to caudad. The tear was encapsulating the actual herniated nucleus pulposus and as such it was freed using a micro-set 1-B and 2-B curets and tear of the herniation was resected using a combination of arthroscopic and 1.5 and 2 mm pituitaries. The disk itself I should note was soft and spongy. It was not granular or desiccated, which contributed to degenerative processes. There was a soft and spongy disk herniation which was noticed combined with a tear on the posterior longitudinal ligament, which led me to believe this was more traumatic in nature. A bayonet and nerve root retractor was then placed carefully to retract the thecal sac and a discectomy was performed using a combination of a long handled 15 blade scalpel, downgoing and straight pituitaries and downgoing curettage. Afterward the disc space was irrigated twice with 20 mL of antibiotic-impregnated saline. All loose and free-floating disc fragments were carefully resected with a narrow pituitary. We next turned our attention toward our L5-S1 microdiscectomy on the left side. At each level a Langley 4 was used to gently mobilize the thecal sac medially and this was held retracted with a bayonetted nerve root retractor. At L5-S1, I again noted neural foraminal stenosis, which I attributed to a discovery of a disk herniation impingement on the neural foramina at L5-S1. This disk herniation was seen circumferential to a tear in the posterior longitudinal ligament. The tear itself was 20 degrees cephalad to caudad and the tear was freed using a micro-set 1-B and 2-B until complete loosening of the disk fragment was allowed. The disk itself was soft and spongy. This combined with a tear noted in the PLL led me to feel this was more traumatic in nature. The fragmented disk was resected without difficulty using a combination of pituitary 1.5 and 2 mm as well as arthroscopic pituitaries. A bayonet and nerve root retractor was then placed carefully to retract the thecal sac and a discectomy was performed using a combination of a long handled 15 blade scalpel, downgoing and straight pituitaries and downgoing curettage. Afterward the disc space was irrigated twice with 20 mL of antibiotic-impregnated saline. All loose and free-floating disc fragments were carefully resected with a narrow pituitary. Having been satisfied with our decompression after our discectomy of all neural elements, we next turned our attention to our neural foraminoplasty/foraminotomy. This was performed through a combination of kerrison rongeurs and pituitaries which ultimately allowed for re-creation of the neural foraminal arch at L4-L5 and L5-S1. Afterwards, hemostasis was obtained with 60 mL of antibiotic-impregnated saline followed by FloSeal and Gelfoam. After sponge and needle count were found to be correct, we next turned our attention to closure. Closure consisted of 1-0 Vicryl in standard interrupted fashion. Zosyn was placed deep to the fascia and superficial to the fascia for antibiotic prophylaxis. Skin closure was performed with 2-0 Vicryl in interrupted fashion followed by a running Monocryl for the skin. Final dressings consisted of Dermabond for the superficial skin, Telfa and Tegaderm. The patient tolerated the procedure well. The patient was extubated after the conclusion of surgery without incident. We discussed the findings of the surgery with the family upon completion of the case. At this point the patient will be transferred to the spine floor for further observation. Elliott Tracy M.D. DR: MILADIS JOB#: [id number] CC: DEEP
--- NOTE | 2019-08-04 17:45 | Discharge Summary ---
DATE OF ADMISSION: 08/03/2019 DATE OF DISCHARGE: 08/04/2019 PROCEDURE PERFORMED DURING ADMISSION: Microdiscectomy, hemilaminotomy, foraminotomy, L4-L5, L5-S1. REASON FOR ADMISSION: Herniated disc of L4-L5 and L5-S1. HOSPITAL COURSE/TREATMENT RENDERED: DISCHARGE PHYSICAL EXAMINATION: 1. The patient was ambulating with and without the assistance of physical therapy. 2. Prior to discharge home incision was clean and dry with minimal swelling. 3. Follows commands. 4. Alert and oriented. 5. Henderson discontinued, voiding. 6. Incentive spirometer at bedside. 7. IVF hep locked. MOTOR: Demonstrates expected postoperative bulk and tone. Moves biceps, triceps, and deltoid musculature on command. Moves hip flexors, quadriceps, tibialis anterior, EHL, gastrocsoleus musculature on command as well. TREATMENT RENDERED: 1. Daily nursing care. 2. Physical Therapy. 3. Occupational Therapy. 4. Intravenous medications. 5. Oral medications. 6. Daily postoperative examinations by Spine surgery team. CONDITION OF PATIENT ON DISCHARGE: The condition on discharge is stable for discharge to home. DISCHARGE INSTRUCTIONS: Our specific instructions relating to physical activity, medications, diet and followup care are detailed in our standard operative folder and were given to this patient prior to surgery. We will however summarize these briefly as stated below. Regarding physical activity we would like the patient to limit their flexion, extension and rotation. We also require a limitation on their bending lifting and twisting. All medication has been called in prior to surgery to their pharmacy of choice. They can resume their regular diet once tolerated. We would like them to shower and limit soaking the wound in a tub/Jacuzzi/the ocean for a period of one month or until the incision is completely healed. We will have them follow up in our office in three weeks' time for their regularly scheduled appointment. They understand to call our office tomorrow to schedule the time for their three week followup appointment. The patient will notify us should they experience any increase in the severity of pain, redness/swelling/ or drainage from their incision. Elliott Tracy M.D. DR: BRITTNEY JOB#: [id number] CC:
--- NOTE | 2019-08-05 16:34 | Diagnostic Imaging Report ---
INDICATION: Pain, intraoperative TECHNIQUE: Intraoperative imaging Fluoroscopy time: 5.5 seconds Total dose: 0.92512 mGym2 Total number of images: 2 COMPARISON: None FINDINGS: Intraoperative images demonstrate surgical tools posterior to the L4-5 and L5-S1 discs. Subsequent image demonstrates a surgical tool projected over L5-S1 disc. IMPRESSION: Intraoperative imaging, as described
[2019-08-06 07:19] VITALS: BP 114/75
--- NOTE | 2019-08-06 07:19 | 48 Hour Post Anesthesia Eval ---
Post Anesthesia Evaluation Procedure: L5-S1 Microdiscectomy, Foraminotomy, Hemilaminotomy Date of Evaluation: Aug 06, 2019 Time of Evaluation: 07:00 Blood Pressure Systolic: 114 0: 75 Pulse Rate: 53 Respiratory Rate: 14 O2 Sat by Pulse Oximetry: 98 Airway: patent Nausea: No Vomiting: No Hydration Status: adequate Cardiopulmonary Status: stable Mental Status/LOC: patient returned to baseline Post-Anesthesia Complications: na Follow-up care needed: N/A Heidy Gonzales CRNA Aug 06, 2019 07:19
== END 2019-08-04 11:10 | disposition home or self-care (01) | DRG 520 ==
LOC: SDSOVERFLO 08-03 08:39 → 3E 08-03 16:22
PROC: 0SB20ZZ Excision of Lumbar Vertebral Disc, Open Approach (ICD-10-PCS; principal; 2019-08-03 10:30)
PROC: 01NR0ZZ Release Sacral Nerve, Open Approach (ICD-10-PCS; principal; 2019-08-03 10:30)
PROC: 0SB40ZZ Excision of Lumbosacral Disc, Open Approach (ICD-10-PCS; principal; 2019-08-03 10:30)
PROC: 01NB0ZZ Release Lumbar Nerve, Open Approach (ICD-10-PCS; principal; 2019-08-03 10:30)
DX: M51.16 Intervertebral disc disorders with radiculopathy, lumbar region (principal); M51.17 Intervertebral disc disorders with radiculopathy, lumbosacral region; M48.061 Spinal stenosis, lumbar region without neurogenic claudication; M48.07 Spinal stenosis, lumbosacral region; E66.9 Obesity, unspecified
CPT/HCPCS: 36415; 72020; 76000; 86850; 86900; 86901; 87081; 94003; 94150; J2405; J2710; J2795